=== PATIENT | male | born 1990 | race Two or more races ===

== ENCOUNTER 2017-08-03 12:57 | Outpatient (CLI) | payer OTHER | END 2017-08-03 13:00 | disposition home or self-care (01) | LOC: SONOGRAMA 12:57 | DX: D57.3 Sickle-cell trait (principal); E06.3 Autoimmune thyroiditis; E03.8 Other specified hypothyroidism; E04.1 Nontoxic single thyroid nodule ==

== ENCOUNTER 2017-08-03 14:38 | Outpatient (CLI) | payer OTHER | END 2017-08-03 14:42 | disposition home or self-care (01) | LOC: LAB 14:38 | DX: D57.3 Sickle-cell trait (principal); D50.8 Other iron deficiency anemias; I10 Essential (primary) hypertension; D51.0 Vitamin B12 deficiency anemia due to intrinsic factor deficiency; D51.1 Vitamin B12 deficiency anemia due to selective vitamin B12 malabsorption with proteinuria; E06.3 Autoimmune thyroiditis; E03.8 Other specified hypothyroidism; D69.3 Immune thrombocytopenic purpura; D50.0 Iron deficiency anemia secondary to blood loss (chronic) ==

== ENCOUNTER 2021-04-10 09:44 | Outpatient (CLI) | payer OTHER | END 2021-04-10 09:51 | disposition home or self-care (01) | LOC: TOM 09:44 | PROVIDERS: ATTEND Family Medicine | DX: R51.9 Headache, unspecified (principal) ==

== ENCOUNTER 2022-02-11 17:33 | Emergency (ER) | payer OTHER ==
[~2022-02-11] VITALS: Ht 167.6 cm; Wt 81.6 kg
== END 2022-02-11 22:51 | disposition home or self-care (01) ==
LOC: ER 17:33
DX: J10.1 Influenza due to other identified influenza virus with other respiratory manifestations (principal); Z20.822 Contact with and (suspected) exposure to COVID-19